=== PATIENT | male | born 1995 | race Caucasian/White ===

== ENCOUNTER 2024-12-29 11:19 | Emergency (ER) | payer SELFPAY ==
[2024-12-29 11:20] VITALS: BP 129/84
--- NOTE | 2024-12-29 11:56 | ED.GENMED ---
History of Present Illness
General
Chief Complaint: Crisis Evaluation
Source: patient
Time Seen by Provider: 12/29/24 11:32
History of Present Illness
History of Present Illness:
29-year-old male with past medical history of anxiety and depression presenting to the emergency department for evaluation of increased panic and anxiety attacks over the last few weeks. Patient came to the emergency department today and seek
further help. He is denying any suicidal ideation, homicidal ideation, auditory or visual hallucinations. Denies any substance use or alcohol use. He has physical concerns at this time. Patient unsure of source of increased anxiety but does note
generalized stress.
Past History
Past History
ED Past Medical History: Psychiatric
ED Past Surgical History: Orthopedic
Social History
Tobacco: Non-smoker
Alcohol: None
Drug: None
Personal: Single
Living: with family
Review of Systems
Review of Systems
All Other Systems: ROS reviewed and negative except as documented in HPI and ROS
Phy Exam
Physical Exam
Physical Exam:
GENERAL: Alert , in no apparent distress
EYE: conjunctiva clear
Head: Normocephalic atraumatic
NECK: Supple,
ENT: mmm.
LUNGS: no acute respiratory distress
NEUROLOGICAL: Alert and oriented
SKIN: Warm and dry, skin intact.
MUSCULOSKELETAL: well perfused.
PSYCH: Normal and appropriate interaction.
Scores
Heart Failure Risk
Heart Failure Risk Score: Not Applicable
Heart Score for Chest Pain Patients
STEMI patient?: Not applicable
Withdrawal Assessment of Alcohol
Withdrawal Assessment Completed?: Not applicable
Course
Orders/Labs/Results
Orders:
Orders
12/29/24 11:32
Crisis Consult Urgent
Reason for Consult: Denies SI, Denies suicidal history. Sent: therapist for anxiety to see LV[facility].
Comment: crisis room 1
Vital Signs
Initial and Last Documented VS:
Initial Vital Signs
Temp Pulse Resp BP Pulse Ox
98 F 83 16 129/84 98
12/29/24 11:20 12/29/24 11:20 12/29/24 11:20 12/29/24 11:20 12/29/24 11:20
Last Documented Vital Signs
Temp Pulse Resp BP Pulse Ox
98 F 83 16 129/84 98
12/29/24 11:20 12/29/24 11:20 12/29/24 11:20 12/29/24 11:20 12/29/24 11:20
MDM/Problems Addressed
MDM/Problems Addressed:
29-year-old male presenting to the ER for evaluation of increased anxiety over the last few weeks. States medication does not seem to be helping. Patient without any physical concerns, no SI or HI, no hallucinations. At this time patient is
stable for discharge to [facility] to make ultimate disposition. I do anticipate discharge home.
*Pulse Oximetry
Patient hypoxic: no
*Critical Care Note
Total Time (30-74mins, 75-104mins- exclusive of procedures): Not Applicable
ED Attending Note
-
Portions of this chart may have been created with voice recognition software.� Occasional wrong word or��sound alike� substitutions may have occurred due to the inherent limitations of voice recognition software.
Discharge Plan
Departure
Patient Disposition: [facility]
Date of Disposition: 12/29/24
Time of Disposition: 11:56
Patient with high blood pressure during this ER visit?: No
Discharge Problem:
Anxiety
Instructions: Anxiety, Adult (DC)
Prescriptions:
No Action
No Current Medications
0
Interventions
Interventions:
*Risk Screen - Suicide Last Done: 12/29/24 11:23
*Neglect/Abuse Screening Last Done: 12/29/24 11:23
ED-Psychological Assessment Last Done: 12/29/24 11:31
Discharge Date and Time
Print Language: CHINESE
== END 2024-12-29 12:39 ==
LOC: EMR 11:19
PROVIDERS: EMERGENCY PHYSICIAN Emergency Medicine
DX: F41.9 Anxiety disorder, unspecified (principal); F32.A Depression, unspecified
CPT/HCPCS: 99283